=== PATIENT | female | born 1990 | race Caucasian/White ===

== ENCOUNTER → 2019-07-22 | Outpatient (CLI) | payer OTHER ==
--- NOTE | 2019-07-22 10:58 | RADIOLOGY REPORT (SQ) ---
EXAM DESCRIPTION: VENOUS UNILATERAL LOWER COMPLETED DATE/TIME: 07/22/2019 10:49 am REASON FOR STUDY: LLE PAIN M79.605 PAIN IN LEFT LEG COMPARISON: None. TECHNIQUE: Dynamic and static gambino scale and color images acquired of the left leg venous system. Se lected spectral images acquired with additional compression and augmentation maneuvers. The contralat eral common femoral vein and saphenofemoral junction were also imaged. Images stored on PACS. LIMITATIONS: None. FINDINGS: COMMON FEMORAL: Normal phasicity, compression and augmentation. No visualized echogenic ma terial on gambino scale. No defects on color images. FEMORAL: Normal compression and augmentation. No visualized echogenic material on gambino scale. No defe cts on color images. POPLITEAL: Normal compression, augmentation. No visualized echogenic material on gambino scale. No defec ts on color images. CALF VESSELS: Normal compression, augmentation. No visualized echogenic material on gambino scale. No de fects on color images. GSV and SSV: Normal compression, augmentation. No visualized echogenic material on gambino scale. No def ects on color images. ANY DEEP VENOUS INSUFFICIENCY: Reflux noted within the greater saphenous vein. ANY EVIDENCE OF POPLITEAL CYST: No. OTHER: No other significant finding. CONTRALATERAL COMMON FEMORAL VEIN AND SAPHENOFEMORAL JUNCTION: Normal phasicity, compression and augmentation. No visualized echogenic material on gambino scale. No de fects on color images. IMPRESSION: 1. No evidence of DVT or SVT within the left lower extremity. 2. Reflux noted within the greater saphenous vein suggestive of venous insufficiency. TECHNICAL DOCUMENTATION: JOB ID: [id number] [employer]- All Rights Reserved Reading location - IP/workstation name: [email or web address]
== END ==
LOC: SP 09:26
PROVIDERS: ATTEND Physician Assistant
DX: M79.605 Pain in left leg (principal)
CPT/HCPCS: 93971

== ENCOUNTER 2020-04-07 10:39 | Inpatient (IN) | payer BC ==
[2020-04-07] MEDS ORDERED: BETAMET ACET/BETAMET NA INJ 6 MG/1 ML ONE (11:00)
[2020-04-07] MEDS ORDERED: BETAMET ACET/BETAMET NA INJ 6 MG/1 ML IM ONE (11:02)
[2020-04-07 11:41] LABS: APPEARANCE,URINE SLIGHTLY-CLOUDY; BILIRUBIN,URINE NEGATIVE (NEGATIVE); COLOR,URINE YELLOW; GLUCOSE, URINE 50 mg/dL (NEGATIVE); KETONES,URINE NEGATIVE (NEGATIVE); LEUKOCYTE ESTERASE,URINE LARGE (NEGATIVE); NITRITE,URINE NEGATIVE (NEGATIVE); PROTEIN,URINE NEGATIVE (NEGATIVE); URINE SPECIFIC GRAVITY 1.008; UROBILINOGEN,URINE NEGATIVE mg/dL (<2.0)
[2020-04-07] MEDS ORDERED: RINGERS SOLUTION,LACTATED 1,000 ML IV PRN (12:11)
[2020-04-07 12:18] LABS: URINE AMPHETAMINES SCREEN NEGATIVE; URINE BARBITURATES SCREEN NEGATIVE; URINE BENZODIAZEPINES SCREEN NEGATIVE; URINE COCAINE SCREEN NEGATIVE; URINE MARIJUANA (THC) SCREEN NEGATIVE; URINE METHADONE SCREEN NEGATIVE; URINE PHENCYCLIDINE SCREEN NEGATIVE
[2020-04-07] MEDS ORDERED: MAGNESIUM SULFATE 4 GM/100 ML RTUPB IV ONE ×2 (13:43→13:44)
[2020-04-07] MEDS ORDERED: MAGNESIUM SULFATE 20 GM/500 ML RTUINJ IV ONE (13:45)
[2020-04-07] MEDS: MAGNESIUM SULFATE 20 GM/500 ML RTUINJ IV PRN (14:27)
--- NOTE | 2020-04-07 15:06 | Admission Physical ---
Datetime Report Generated by CPN: 04/07/2020 15:06 CURRENT ADMISSION Chief Complaint: Uterine Contractions Indication for Induction: Not Applicable Admit Impression : , Intrauterine Admit Plan: Admit to Unit; Initiate Labor Protocol ALLERGIES Medication Allergies: Yes Medication Allergies: amoxicillin trihydrate/[place] (11/18/2014); Potassium Clavulanate */[place] (11/18/2014) Latex: No Latex Allergies Food Allergies: none Environmental Allergies: none OBSTETRICAL HISTORY EDC: 05/23/2020 00:00 : 3 Para: 2 Term: 0 : 2 SAB: 0 IAB: 0 Ectopic: 0 Livin Cesareans: 0 VBACs: 0 Multiple Births: 0 Gestational Diabetes: No Rh Sensitization: No Incompetent Cervix: No EV: No Infertility: No ART Treatment: No Uterine Anomaly: No IUGR: No Hx Previous C/S: No Macrosomia: No Hx Loss/Stillborn: No PIH: No Hx : No Placenta Previa/Abruption: No Depression/PP Depression: No PTL/PROM: No Post Hemorrhage: No Current Procedures: Ultrasound Obstetrical History Comments: G2 G3- present SEE RECORDS Alcohol: No Marijuana : No Cocaine: No Other Illicit Drugs: No Cigarettes: Never Smoker. [id number] MEDICAL HISTORY Diabetes: No Blood Transfusion: No Pulmonary Disease (Asthma, TB): No Breast Disease: No Hypertension: No Breaker Up Surgery: No Heart Disease: No Hosp/Surgery: Yes Autoimmune Disorder: No Anesthetic Complications: No Kidney Disease: No Abnormal Pap Smear: No Neuro/Epilepsy: No Psychiatric Disorders: No Other Medical Diseases: No Hepatitis/Liver Disease: No Significant Family History: No Varicosities/Phlebitis: No Trauma/Violence : No Thyroid Dysfunction: No INFECTIOUS HISTORY Gonorrhea: No Genital Herpes: No Chlamydia: No Tuberculosis: No Syphilis: No Hepatitis: No HIV/AIDS Exposure: No Rash or Viral Illness: No HPV: No PHYSICAL EXAM General: Normal HEENT: Normal Neurologic: Normal Thyroid: Normal Heart: Normal Lungs: Normal Breast: Deferred Back: Normal Abdomen: Normal Genitourinary Exam: Normal Extremities: Normal DTRs: Normal Pelvic Type: Adequate Vital Signs: Reviewed VAGINAL EXAM Dilatation: 3 Effacement: 70 Station: -2 MEMBRANES Pooling: Negative Membranes: Intact FETUS A EGA: 33.3 Monitoring: External US FHR- Baseline: 120 Variability: Moderate 6-25bpm Decelerations: None FHR Category: Category I Presentation: Vertex Admit Comment: labor. Will start Magnesium steroids and antibiotics. PLANS FOR LABOR AND DELIVERY Labor and Delivery: None Pain Management: Epidural Feeding Preference: Breast Benefit of Breast Feed Discussed: Yes Circumcision: Yes INFORMED CONSENT Signature: with User ID: [email or web address]
[2020-04-07] MEDS ORDERED: CLINDAMYCIN 900 MG/D5W RTU 900 MG/50 ML RTUPB IV ONE ×2 (15:19→23:02)
[2020-04-07] MEDS: CLINDAMYCIN 900 MG/D5W RTU 900 MG/50 ML RTUPB IV SCH ×2 (15:24→23:21)
[2020-04-07 16:10] LABS: HEMATOCRIT 36.8 % (36.0-47.0); HEMOGLOBIN 12.4 g/dL (12.0-15.5); MEAN CORPUSCULAR HEMOGLOBIN 28.3 pg (27.0-33.4); MEAN CORPUSCULAR HGB CONC 33.6 g/dL (32.0-36.0); MEAN CORPUSCULAR VOLUME 84 fl (80-97); PLATELET COUNT 177 10^3/uL (150-450); RED BLOOD COUNT 4.36 10^6/uL (3.72-5.28); RED CELL DISTRIBUTION WIDTH 13.5 % (11.5-14.0)
[2020-04-07] MEDS ORDERED: HYDROXYZINE PAMOATE 50 MG CAPSULE ONE (19:25)
[2020-04-07] MEDS ORDERED: HYDROXYZINE PAMOATE 50 MG CAPSULE PO ONE (19:28)
[2020-04-07 20:30] LABS: CHLAM PCR NOT DETECTED (NOT DETECT)
[2020-04-08] MEDS ORDERED: MAGNESIUM SULFATE 20 GM/500 ML RTUINJ IV ONE ×2 (00:09→10:54)
[2020-04-08] MEDS: MAGNESIUM SULFATE 20 GM/500 ML RTUINJ IV PRN ×2 (00:10→10:58)
[2020-04-08] MEDS ORDERED: OXYTOCIN 10 UNIT/ML VIAL ONE (03:02)
[2020-04-08] MEDS ORDERED: LIDOCAINE 1% INJ-PF (10 MG/ML) 30 ML SDV ONE (03:03)
[2020-04-08] MEDS ORDERED: MISOPROSTOL 0.2 MG TABLET ONE (03:03)
[2020-04-08] MEDS ORDERED: OXYTOCIN/0.9 % SODIUM CHLORIDE 0 UNIT/0 ML RTUINJ ONE (03:03)
[2020-04-08] MEDS ORDERED: BETAMET ACET/BETAMET NA INJ 6 MG/1 ML ONE (03:15)
[2020-04-08] MEDS ORDERED: AZITHROMYCIN INJ 500 MG VIAL IV ONE ×2 (03:38→03:40)
[2020-04-08] MEDS ORDERED: FENTANYL/BUPIVACAINE/NS/PF 300 MCG/150 ML RTUINJ EPI ONE (03:41)
[2020-04-08] MEDS ORDERED: EPHEDRINE SULFATE INJ 50 MG/1 ML AMPULE ONE (03:41)
[2020-04-08] MEDS ORDERED: ROPIVACAINE HCL 0.2% INJ/PF (2 MG/ML) 20 ML SDV ONE (03:41)
[2020-04-08] MEDS ORDERED: BETAMET ACET/BETAMET NA INJ 6 MG/1 ML IM ONE (04:15)
[2020-04-08] MEDS ORDERED: CLINDAMYCIN 900 MG/D5W RTU 900 MG/50 ML RTUPB IV ONE (06:45)
[2020-04-08] MEDS: CLINDAMYCIN 900 MG/D5W RTU 900 MG/50 ML RTUPB IV SCH (06:59)
[2020-04-08] MEDS ORDERED: OXYTOCIN/0.9 % SODIUM CHLORIDE 30 UNIT/500 ML RTUINJ IV PRN ×2 (07:51→15:03)
[2020-04-08] MEDS ORDERED: OXYTOCIN/0.9 % SODIUM CHLORIDE 30 UNIT/500 ML RTUINJ ONE (08:41)
--- NOTE | 2020-04-08 09:04 | L&D Progress Notes ---
PROGRESS NOTES Datetime Report Generated by CPN: 04/08/2020 09:04 PROGRESS NOTE Vital Signs : Reviewed; Within Normal Limits Comment: sitting up in bed, hsb at BS, Cat 1 strip, POC discussed with pt and family, POC discussed with Dr. Vergara, start Pitocin, SROM @ 0300, will let us know if she has urge to push, irreg uc VAGINAL EXAM Dilatation: 3 Effacement: 70 Station: -2 LAST VAGINAL EXAM-NURSING Nursing Exam Dilitation: 6.0 Nursing Exam Effacement: 50 Nursing Exam Station: -2 Nursing Exam Contractions: TOCO not tracing pt sitting for epidural RN at bedside MEMBRANES Pooling: Negative Membranes: Intact FETUS A : 33.0 Presentation: Vertex SIGNATURE SIGNATURE: [id number] Assignment: Kalyan Vergara MD Signature: with User ID: Saulo : with User ID: [email or web address]
[2020-04-08] MEDS ORDERED: METHYLERGONOVINE MALEATE INJ/PF 0.2 MG/1 ML AMPULE ONE ×2 (14:25→14:30)
[2020-04-08] MEDS ORDERED: MISOPROSTOL 0.2 MG TABLET PR ONE ×2 (14:27→15:03)
[2020-04-08] MEDS ORDERED: METHYLERGONOVINE MALEATE INJ/PF 0.2 MG/1 ML AMPULE IM ONE (14:28)
[2020-04-08] MEDS ORDERED: DIPHENHYDRAMINE HCL 25 MG CAPSULE PO PRN (15:03)
[2020-04-08] MEDS ORDERED: ACETAMINOPHEN 650 MG SUPP.RECT PR PRN (15:03)
[2020-04-08] MEDS ORDERED: BENZOCAINE/MENTHOL AEROSOL SPRAY 56 ML TOP PRN (15:03)
[2020-04-08] MEDS ORDERED: MAGNESIUM HYDROXIDE SUSP 30 ML UDCUP PO PRN (15:03)
[2020-04-08] MEDS ORDERED: PSEUDOEPHEDRINE HCL 30 MG TABLET PO PRN (15:03)
[2020-04-08] MEDS ORDERED: DIPH/PERTUSS(ACELL)/TETANUS VAC/PF 0.5 ML SYR (>=10YO) IM PRN (15:03)
[2020-04-08] MEDS ORDERED: PROMETHAZINE HCL INJ 25 MG/1 ML VIAL IV PRN (15:03)
[2020-04-08] MEDS ORDERED: MEASLES,MUMPS&RUBELLA VACC/PF 0.5 ML VIAL SUBCUT PRN (15:03)
[2020-04-08] MEDS ORDERED: PROMETHAZINE HCL 25 MG TABLET PO PRN (15:03)
[2020-04-08] MEDS ORDERED: GLYCERIN/WITCH HAZEL LEAF 1 EACH MED..WIPE TP PRN (15:03)
[2020-04-08] MEDS ORDERED: PROMETHAZINE HCL 25 MG SUPP.RECT PR PRN (15:03)
[2020-04-08] MEDS ORDERED: DIBUCAINE 1% OINTMENT 28 GM TP PRN (15:03)
[2020-04-08] MEDS ORDERED: NA PHOS,M-B/NA PHOS,DI-BA (ADULT) 133 ML ENEMA PR PRN (15:03)
--- NOTE | 2020-04-08 15:26 | Warning Signs in Babies ---
VOD Warning Signs Datetime Report Generated by [facility]: 04/08/2020 15:25 VOD#608 -Warning Signs in Babies: Needs to be viewed. (04/07/2020 11:08:Em Uriarte RN)
[2020-04-08] MEDS: ACETAMINOPHEN WITH CODEINE #3 TABLET PO PRN ×2 (16:56→22:28)
--- NOTE | 2020-04-08 17:06 | Delivery Summary ---
Del Sum A-C Datetime Report Generated by CPN: 04/08/2020 17:06 DELIVERY PERSONNEL DELIVERY PERSONNEL: [id number] Delivery Doctor:: Lupe Jennings CNM Labor and Delivery Nurse:: Alessandra Mckeon RNchief technician x ray Nurse:: Em Uriarte RN Neonatal Nurse Practitioner:: MARTA Boo Nursery Nurse:: UGO Urbanoub Tech/ESSENCE: Iram Montalvo CNA II MATERNAL INFORMATION Delivery Anesthesia: Local; Epidural Medications After Delivery: Pitocin 30 Units in 500ml NS/D5W; Cytotec 1000mcg Per Rectum/Vagina; Other-Please Comment Meds After Delivery Comment: Methergine 0.05mg IV given. AMI and MD Laci aware Delivery QBL: 600 Maternal Complications: Premature Rupture of Membranes Provider Comments: AROM clear fluid at 10cm, pt progressed and started pushing, viable male from OA to DIMAS over ML laceration, left and right sulcus, placed on mothers abdomen, cord clamped and cut by FOB, and then given to nursery nurse for evaluation, spont delivery of grossly small placenta, cord blood and placenta to pathology, lacerations repaired and continue to have some bleeding, Dr. Vergara called to evaluate for high tear. repaired by dr. Vergara (Annotations: Data stored by N on behalf of user) LABOR SUMMARY EDC: 05/23/2020 00:00 No. Babies in Womb: 1 Attempted: No Labor Anesthesia: Epidural LABOR INFORMATION Reason for Induction: Not Applicable Oxytocin: Augmentation Group B Beta Strep: unknown Antibiotics # of Doses: 3 Antibiotics Time of Last Dose: 0700 Name of Antibiotic Given: Clindamycin x2 and Zithromax x1 Steroids Given: Full Course; < 24 Hours before Delivery Reason Steroids Not Administered: Not Applicable MEMBRANES Membranes Rupture Method: Spontaneous Rupture of Membranes: 04/08/2020 02:30 Length of Rupture (hr): 11.77 Amniotic Fluid Color: Clear Amniotic Fluid Amount: Small Amniotic Fluid Odor: Normal STAGES OF LABOR Stage 3 hr: 0 Stage 3 min: 4 VAGINAL DELIVERY Episiotomy: None Laceration #1: Perineal; Vaginal; Sulcus Laceration Extension #1: Second Degree Laceration Repair: No Laceration Repair Note: 2-[address]isco Javier Vergara repaired the high tear with vicryl Initial Vag Sponge Count: N/A Final Vag Sponge Count: N/A Initial Vag Sharps Count: N/A Final Vag Sharps Count: N/A Sponge Count Correct: Yes; Vaginal Sweep Performed Sharps Count Correct: Yes BABY A INFORMATION Delivery Date/Time: 04/08/2020 14:16 Method of Delivery: Vaginal Nurse Controlled Delivery: No Born in Route : No : N/A Forceps: N/A Vacuum Extraction: N/A Shoulder Dystocia : No PRESENTATION/POSITION BABY A Presentation: Cephalic Cephalic Presentation: Vertex Vertex Position: Left Occipital Anterior Breech Presentation: N/A PLACENTA INFORMATION BABY A Placenta Delivery Time : 04/08/2020 14:20 Placenta Method of Delivery: Spontaneous Placenta Status: Delivered SCORES BABY A Heart Rate 1 min: >100 bpm Resp Effort 1 min: Good Cry Reflex Irritability 1 min: Cough or Sneeze or Pulls Away Muscle Tone 1 min: Active Motion Color 1 min: Blue/Pale Resuscitation Effort 1 min: Tactile Stimulation SCORE 1 MIN: 8 Heart Rate 5 min: >100 bpm Resp Effort 5 min: Good Cry Reflex Irritability 5 min: Cough or Sneeze or Pulls Away Muscle Tone 5 min: Some Flexion of Extremities Color 5 min: Body Bentley, Extremities Blue Resuscitation Effort 5 min: Tactile Stimulation; Oxygen; PPV/NCPAP SCORE 5 MIN: 8 INFANT INFORMATION BABY A Gestational Age at Delivery: 33.4 Gestational Status: - <34 Weeks Outcome : Liveborn Infant Condition : Fair (Annotations: Data stored by [facility] on behalf of user) Infant Sex: Male IDENTIFICATION BABY A Verification Date/Time: 04/08/2020 14:41 ID Band Number: [id number] Mother's Name Verified: Yes RN Verifying : Lalito,RN Additional Verifying Personnel: UGO Meier WEIGHT/LENGTH BABY A Infant Birthweight (gm): 2259 Infant Weight (lb): 5 Weight (oz): 0 Length (in): 19.00 Length (cm): 48.26 CORD INFORMATION BABY A No. Cord Vessels: 3 Nuchal Cord : N/A (Annotations: Data stored by CPN on behalf of user) True Knot: 1 Cord Blood Taken: Yes-For Eval (Mom's Blood Type - or O+) Infant Suction: Mouth; Nose ASSESSMENT BABY A Complications: Other Complications- Other: true knot in cord Physical Findings at Delivery: Within Normal Limits Infant Respirations: Grunting; Intercostal Retractions; Nasal Flaring Skin to Skin: Yes (Annotations: Skin to skin for approx 5 minutes before to warmer and then transferred to NICU) Skin to Skin Time (min): 5 Infant Care By: yvette Transferred To: NICU
[2020-04-08] MEDS: FERROUS SULFATE 325 MG TABLET PO SCH (18:11)
[2020-04-08] MEDS: DOCUSATE SODIUM 100 MG CAPSULE PO SCH (18:11)
[2020-04-08] MEDS: IBUPROFEN 800 MG TABLET PO SCH (22:32)
[2020-04-08] MEDS: FAMOTIDINE 20 MG TABLET PO SCH (22:32)
[2020-04-09] MEDS: ACETAMINOPHEN WITH CODEINE #3 TABLET PO PRN ×5 (05:15→23:22)
[2020-04-09] MEDS: IBUPROFEN 800 MG TABLET PO SCH ×3 (05:18→22:00)
[2020-04-09 07:38] LABS: HEMATOCRIT 26.3 % (36.0-47.0); MEAN CORPUSCULAR HEMOGLOBIN 28.6 pg (27.0-33.4); MEAN CORPUSCULAR VOLUME 84 fl (80-97); PLATELET COUNT 215 10^3/uL (150-450); RED BLOOD COUNT 3.13 10^6/uL (3.72-5.28); RED CELL DISTRIBUTION WIDTH 13.7 % (11.5-14.0)
[2020-04-09 07:41] LABS: HEMOGLOBIN 8.9 g/dL (12.0-15.5)
[2020-04-09] MEDS: FERROUS SULFATE 325 MG TABLET PO SCH ×2 (09:42→17:41)
[2020-04-09] MEDS: DOCUSATE SODIUM 100 MG CAPSULE PO SCH ×2 (09:42→17:41)
[2020-04-09] MEDS: SENNOSIDES/DOCUSATE 8.6-50 MG 1 EACH TABLET PO SCH (09:42)
[2020-04-09] MEDS: PRENATAL VITAMIN W DHA CAPSULE PO SCH (09:43)
--- NOTE | 2020-04-09 10:37 | PDOC PROGRESS REPORT ---
Subjective-OB Progress Note for:: 04/09/20 - PP Day #1, doing well, no complaints, UOB, voiding, O+, rubella immune, Physical Exam (OB) Vital Signs: Temp Pulse Resp BP Pulse Ox 97.5 F 81 18 104/61 100 04/09/20 07:36 04/09/20 07:36 04/09/20 07:36 04/09/20 07:36 04/09/20 07:36 Intake & Output 04/08/20 04/09/20 04/10/20 06:59 06:59 06:59 Intake Total 586 500 500 Balance 586 500 500 Weight 77.8 kg - General General Appearance: Appears well, Alert In distress: None - Lochia Lochia Amount: Small 10-25 ml Lochia Color: Rubra/Red - Abdomen Description: Soft Hernia Present: No Fundal Description: Firm, Midline Fundal Height: u/u - u/2 - Respiratory Respiratory Status: No respiratory distress - Abdominal Distension: No distension Tenderness: Nontender - Genitourinary Genitourinary Note: voiding - Extremities Upper extremity: Normal inspection Lower extremities: Normal inspection - Neurological Cognition: Normal Orientation: AAOx4 - Psychological Associated symptoms: Normal affect, Normal mood - Skin Skin Temperature: Warm Skin Moisture: Dry Objective-Diagnostic Laboratory: 04/09/20 07:12 04/08/20 04/09/20 15:52 07:12 WBC 15.0 H RBC 3.13 L Hgb 8.9 L D Hct 26.3 L MCV 84 MCH 28.6 MCHC 34.0 RDW 13.7 Plt Count 215 Blood Type O POSITIVE Antibody Screen NEGATIVE Assessment and Plan(PN) - Assessment and Plan (1) (normal spontaneous vaginal delivery) Is this a current diagnosis for this admission?: Yes (2) Iron deficiency anemia during Is this a current diagnosis for this admission?: Yes (3) Premature rupture of membranes Qualifiers: PROM onset of labor timing: onset of labor within 24 hours of rupture PROM gestational age: -third trimester Qualified Code(s): O42.013 - premature rupture of membranes, onset of labor within 24 hours of rupture, third trimester Is this a current diagnosis for this admission?: Yes (4) contractions Is this a current diagnosis for this admission?: Yes (5) delivered vaginally, 2,500 grams and over, 33-34 completed weeks Is this a current diagnosis for this admission?: Yes Plan:: routine PP orders, ambulation encouraged - Time Spent with Patient Time with patient: Less than 15 minutes Medications reviewed and adjusted accordingly: Yes - Disposition Anticipated Discharge Disposition: Home, Self Care Anticipated Discharge Timeframe: within 24 hours
[2020-04-09] MEDS: FAMOTIDINE 20 MG TABLET PO SCH ×2 (10:42→22:26)
[2020-04-10] MEDS: IBUPROFEN 800 MG TABLET PO SCH (06:11)
[2020-04-10] MEDS: ACETAMINOPHEN WITH CODEINE #3 TABLET PO PRN (07:55)
[2020-04-10 07:57] VITALS: BP 117/72
--- NOTE | 2020-04-10 10:16 | PDOC DISCHARGE SUMMARY ---
Impression - Admit/DC Date/PCP Admission Date/Primary Care Provider: 04/07/20 13:47 AMANDA GLEZ Discharge Date: 04/10/20 - PP Day #2, doing well, O+, Rubella Immune, s/p delivery of 33 week baby, who remains in the NICU. Pt is pumping. - Discharge Diagnosis (1) (normal spontaneous vaginal delivery) Is this a current diagnosis for this admission?: Yes (2) Iron deficiency anemia during Is this a current diagnosis for this admission?: Yes (3) Premature rupture of membranes Is this a current diagnosis for this admission?: Yes (4) contractions Is this a current diagnosis for this admission?: Yes (5) delivered vaginally, 2,500 grams and over, 33-34 completed weeks Is this a current diagnosis for this admission?: Yes - Additional Information Resuscitation Status: Full Code Discharge Diet: As Tolerated, Regular Referrals: ISAAC HENRY PA [Primary Care Provider] - Home Medications: Pnv W-O Ca No5/Fe Fumarate/FA [-U Multiple Vitamin Capsule] 1 cap PO DAILY 07/23/12 HPI Reason(s) for Admission: Labor Procedures: Ultrasound Intrapartum Procedure(s): Spontaneous Vaginal Delivery Hospital Course Hospital Course: labor, normal PP course Results Laboratory Results: WBC 15.0 10^3/uL (4.0-10.5) H 04/09/20 07:12 RBC 3.13 10^6/uL (3.72-5.28) L 04/09/20 07:12 Hgb 8.9 g/dL (12.0-15.5) L D 04/09/20 07:12 Hct 26.3 % (36.0-47.0) L 04/09/20 07:12 MCV 84 fl (80-97) 04/09/20 07:12 MCH 28.6 pg (27.0-33.4) 04/09/20 07:12 MCHC 34.0 g/dL (32.0-36.0) 04/09/20 07:12 RDW 13.7 % (11.5-14.0) 04/09/20 07:12 Plt Count 215 10^3/uL (150-450) 04/09/20 07:12 Magnesium 4.6 mg/dL (1.6-2.3) H* 04/07/20 15:42 Urine Color YELLOW 04/07/20 10:56 Urine Appearance SLIGHTLY-CLOUDY 04/07/20 10:56 Urine pH 7.0 (5.0-9.0) 04/07/20 10:56 Ur Specific [place] 1.008 04/07/20 10:56 Urine Protein NEGATIVE mg/dL (NEGATIVE) 04/07/20 10:56 Urine Glucose (UA) 50 mg/dL (NEGATIVE) H 04/07/20 10:56 Urine Ketones NEGATIVE mg/dL (NEGATIVE) 04/07/20 10:56 Urine Blood NEGATIVE (NEGATIVE) 04/07/20 10:56 Urine Nitrite NEGATIVE (NEGATIVE) 04/07/20 10:56 Urine Bilirubin NEGATIVE (NEGATIVE) 04/07/20 10:56 Urine Urobilinogen NEGATIVE mg/dL (<2.0) 04/07/20 10:56 Ur Leukocyte Esterase LARGE (NEGATIVE) H 04/07/20 10:56 Urine WBC (Auto) 10 /HPF 04/07/20 10:56 Urine RBC (Auto) 1 /HPF 04/07/20 10:56 Squamous Epi Cells Auto 6 /HPF 04/07/20 10:56 Urine Mucus (Auto) RARE /LPF 04/07/20 10:56 Urine Ascorbic Acid NEGATIVE (NEGATIVE) 04/07/20 10:56 Membranes Rupture POSITIVE (NEGATIVE) H 04/08/20 02:34 Urine Opiates Screen NEGATIVE 04/07/20 10:56 Urine Methadone Screen NEGATIVE 04/07/20 10:56 Ur Barbiturates Screen NEGATIVE 04/07/20 10:56 Ur Phencyclidine Scrn NEGATIVE 04/07/20 10:56 Ur Amphetamines Screen NEGATIVE 04/07/20 10:56 U Benzodiazepines Scrn NEGATIVE 04/07/20 10:56 Urine Cocaine Screen NEGATIVE 04/07/20 10:56 U Marijuana (THC) Screen NEGATIVE 04/07/20 10:56 Chlamydia DNA (PCR) NOT DETECTED (NOT DETECT) 04/07/20 18:12 N.gonorrhoeae DNA (PCR) NOT DETECTED (NOT DETECT) 04/07/20 18:12 Blood Type O POSITIVE 04/08/20 15:52 Antibody Screen NEGATIVE 04/08/20 15:52 Plan Plan of Treatment: d/c home, f/up with [facility] in 4 wks Time Spent: Less than 30 Minutes
[2020-04-10] MEDS: FAMOTIDINE 20 MG TABLET PO SCH (11:21)
[2020-04-10] MEDS: FERROUS SULFATE 325 MG TABLET PO SCH (11:22)
[2020-04-10] MEDS: DOCUSATE SODIUM 100 MG CAPSULE PO SCH (11:22)
[2020-04-10] MEDS: SENNOSIDES/DOCUSATE 8.6-50 MG 1 EACH TABLET PO SCH (11:23)
[2020-04-10] MEDS: PRENATAL VITAMIN W DHA CAPSULE PO SCH (11:23)
== END 2020-04-10 14:16 | disposition home or self-care (01) | DRG 806 ==
LOC: LC 10:39 → LR 13:47 → 2N 04-08 16:27
PROVIDERS: ADMIT Obstetrics & Gynecology; ATTEND Obstetrics & Gynecology Gynecology
PROC: 10E0XZZ Delivery of Products of Conception, External Approach (ICD-10-PCS; principal; 2020-04-08)
PROC: 0KQM0ZZ Repair Perineum Muscle, Open Approach (ICD-10-PCS; 2020-04-08)
DX: O60.14X0 Preterm labor third trimester with preterm delivery third trimester, not applicable or unspecified (principal); O71.4 Obstetric high vaginal laceration alone; Z37.0 Single live birth; Z3A.33 33 weeks gestation of pregnancy; O99.02 Anemia complicating childbirth; D50.9 Iron deficiency anemia, unspecified
CPT/HCPCS: 1967; 36415; 80307; 81001; 83735; 84112; 85027; 86850; 86900; 86901; 87081; 87491; 87591; 88307; 94760; 96372; 99465; C1758; J0456; J0702; J2210; J2590; J2795; J3010; J3475; J3490